=== PATIENT | female | born 1980 | race Caucasian/White ===

== ENCOUNTER 2021-03-09 04:16 | Emergency (ER) | payer OTHER ==
[2021-03-09 04:27] VITALS: BP 140/88; PULSE 104; TEMP 98.2; BMI 27.4
[2021-03-09] MEDS ORDERED: VANCOMYCIN 1,000 MG VIAL (RESTRICTED TO ID ONLY) ONE (05:22)
[2021-03-09] MEDS ORDERED: VANCOMYCIN 1,000 MG in DEXTROSE 5%-WATER - 250 ML IVPB ONE (05:22)
[2021-03-09 05:52] LABS: PH,URINE 6.5 (5.0-8.0); URINE APPEARANCE CLEAR; URINE BILIRUBIN NEGATIVE (NEGATIVE); URINE COLOR YELLOW; URINE GLUCOSE (UA) NEGATIVE (NEGATIVE); URINE KETONE NEGATIVE (NEGATIVE); URINE LEUK ESTERASE NEGATIVE (NEGATIVE); URINE NITRITE NEGATIVE (NEGATIVE); URINE PROTEIN NEGATIVE (NEGATIVE); URINE UROBILINOGEN 0.2 mg/dL (0.2-1.0)
[2021-03-09 05:57] LABS: URINE BARBITURATES NEGATIVE ng/ml (CUTOFF=200)
[2021-03-09] MEDS ORDERED: ACETAMINOPHEN 500 MG TABLET (FP) PO ONE (05:57)
[2021-03-09] MEDS ORDERED: ACETAMINOPHEN 500 MG TABLET (FP) ONE (05:57)
[2021-03-09 05:58] LABS: METHADONE, UR NEGATIVE ng/ml (CUTOFF=300); OPIATES, URI NEGATIVE ng/ml (CUTOFF=300); PHENCYCLIDINE,URINE NEGATIVE ng/ml (CUTOFF=25)
[2021-03-09 06:07] LABS: BASO % 1.1 % (0-2.0); EOS % 2.1 % (0-4.5); HEMATOCRIT 35.1 % (32.4-45.2); HEMOGLOBIN 11.9 GM/dL (10.7-15.3); LYMPH % 50.2 % (8-40); MCH 30.6 pg (25.7-33.7); MEAN CELL VOLUME 90.2 fl (80-96); MEAN PLT VOLUME 7.4 fl (7.5-11.1); MONO % 7.3 % (3.8-10.2); NEUT % 39.3 % (42.8-82.8); PLATELET COUNT 590 K/MM3 (134-434); RBC 3.89 M/mm3 (3.60-5.2); RDW 13.6 % (11.6-15.6); WHITE BLOOD COUNT 6.3 K/mm3 (4.0-10.0)
[2021-03-09 06:09] LABS: HCG,QUALITATIVE URINE NEGATIVE
[2021-03-09 06:10] LABS: COCAINE, UR NEGATIVE ng/ml (CUTOFF=300); URINE AMPHETAMINES POSITIVE ng/ml (CUTOFF=500); URINE BENZODIAZEPINES POSITIVE ng/ml (CUTOFF=200)
[2021-03-09 06:14] LABS: ALBUMIN 3.3 g/dl (3.4-5.0)
[2021-03-09 06:17] LABS: CREATININE 0.7 mg/dL (0.55-1.3)
[2021-03-09 06:18] LABS: BILIRUBIN,TOTAL 0.3 mg/dL (0.2-1)
[2021-03-09 06:19] LABS: TOT PROT 7.6 g/dl (6.4-8.2)
[2021-03-09] MEDS ORDERED: LOCK ITEM NR ONE (07:18)
== END 2021-03-09 09:31 | disposition home or self-care (01) ==
LOC: FER 04:16
DX: R22.41 Localized swelling, mass and lump, right lower limb (principal); M79.604 Pain in right leg
CPT/HCPCS: 36415; 73090-TC-LT-FY; 73090-TC-RT-FY; 73630-TC-RT-FY; 80053; 80307; 81003; 84703; 85025; 87040; 93971-TC; 99285-25; C9803; U0003; U0005

== ENCOUNTER 2021-11-22 13:43 | Emergency (ER) | payer OTHER ==
[2021-11-22 14:06] VITALS: BP 154/88; PULSE 119; TEMP 98.5; BMI 25.6
[2021-11-22 18:45] LABS: PH,URINE 7.5 (5.0-8.0); URINE APPEARANCE CLOUDY; URINE BILIRUBIN NEGATIVE (NEGATIVE); URINE COLOR YELLOW; URINE GLUCOSE (UA) NEGATIVE (NEGATIVE); URINE KETONE NEGATIVE (NEGATIVE); URINE LEUK ESTERASE NEGATIVE (NEGATIVE); URINE NITRITE NEGATIVE (NEGATIVE); URINE PROTEIN NEGATIVE (NEGATIVE); URINE UROBILINOGEN 0.2 mg/dL (0.2-1.0)
== END 2021-11-22 17:08 | disposition home or self-care (01) ==
LOC: JER 13:43 → JERFT 13:43
DX: R30.0 Dysuria (principal); Z3A.15 15 weeks gestation of pregnancy
CPT/HCPCS: 76801-TC; 81003; 99284-25